=== PATIENT | male | born 1985 | race Caucasian/White ===

== ENCOUNTER 2017-06-07 10:25 | Day surgery (SDC) | payer OTHER ==
[~2017-06-07 10:25] MED LIST: LIDOCAINE W/ SODIUM BICARB 0.5 ML SYR ONE; Lactated Ringers 1,000 ML PRIMARY IV ONE
[2017-06-07] MEDS ORDERED: LIDOCAINE 2% 20 MG/ML - 20 ML VIAL ONE (10:54)
[2017-06-07] MEDS ORDERED: BUPivacaine Inj 0.5% PF (5mg/ml) 10ml vial ONE (10:54)
[2017-06-07] MEDS ORDERED: MIDAZOLAM 5 MG/1 ML ONE (11:10)
[2017-06-07] MEDS ORDERED: fentaNYL Inj 250 MCG/5 ML VIAL ONE (11:35)
[2017-06-07] MEDS ORDERED: ceFAZolin 1 GM VIAL ONE (11:48)
[2017-06-07] MEDS ORDERED: BUPivacaine Liposome/PF (Exparel) Inj 20ml vial INFIL ONE (12:07)
[2017-06-07] MEDS ORDERED: Lactated Ringers 1,000 ML PRIMARY IV ONE (12:11)
[2017-06-07 12:12] VITALS: RESP 18
[2017-06-07] MEDS ORDERED: ONDANSETRON 4 MG/2 ML VIAL IVP PRN (12:20)
[2017-06-07] MEDS ORDERED: NORMAL SALINE 10 ML SYRINGE FLUSH IVP PRN (12:20)
[2017-06-07] MEDS ORDERED: MORPHINE SULFATE 2 MG/1 ML IVP PRN (12:20)
[2017-06-07] MEDS ORDERED: HYDROcodone-APAP 7.5 MG-325 MG TABLET PO PRN (12:20)
--- NOTE | 2017-06-07 12:32 | GEN.OPNOTE ---
Operative Note Surgery Date: 06/07/17 Preoperative Diagnosis: Right inguinal hernia Postoperative Diagnosis: Right inguinal hernia Procedure: Right inguinal herniorrhaphy with Prolene mesh Surgeon: Juan Pablo Ragsdale MD Anesthesia Provider: Gen Emery CRNA Anesthesia Type: Local, MAC Estimated Blood Loss (mL): 2 Fluids: Lactated Ringer's please see anesthesia notes in EMR. 2 g Ancef Pathology: None sent Indications: A right inguinal hernia Findings: A right direct and indirect hernia Operative Summary: Patient is brought in operative room placed supine position. Given IV sedation. Prepped draped sterile fashion. Timeout performed per protocol. He is 0.5 Marcaine 2% Xylocaine 50-50 mixture for local regional block. It is skin incision after adequate anesthesia. Hemostased electrocautery. Dissection to subcutaneous tissue electrocautery. Infiltrated below the aponeurosis external oblique for pain control the spermatic cord. A small incision that after also external oblique. Then's slight identify the ilioinguinal nerve. Then opened the aponeurosis of external oblique through the external ring and then above the internal ring with Metzenbaum scissors. Dissected the spermatic cord off the floor the ilioinguinal canal and place a [place] drain around it. Patient had a direct hernia defect. I then inspected the cord and found the indirect hernia sac. Dissected this free from the spermatic cord and reduced it. Cut a piece of Prolene mesh to appropriate size and shape. Keyholed mesh to reconstruct the internal ring. Using 0 Prolene suture sutured the inferior to the mesh to the shelving edge of the ilioinguinal ligament. On the superior edge of the mesh and stress cells fascia. Medial edge of the mesh was sewn to the rectus sheath. Return the spermatic cord is anatomical position. Closed the external oblique with 2-0 Prolene contents running suture. Infiltrated 20 mg a Exoprel for postoperative pain control. Closed the skin with 4-0 Monocryl continuous running septic restitch Steri-Strips applied sterile dressings applied patient tolerated procedure well the were no complications. Counts were correct. Patient transferred recovery room stable condition
[2017-06-07] MEDS ORDERED: oxyCODONE/APAP 7.5/325 Tab 1 TAB TAB PO ONE ×2 (13:15→13:16)
[2017-06-07 14:02] VITALS: TEMP 97.6
== END 2017-06-07 13:50 | disposition home or self-care (01) ==
LOC: SDSC 10:25
PROVIDERS: ATTEND Surgery
DX: K40.90 Unilateral inguinal hernia, without obstruction or gangrene, not specified as recurrent (principal)
CPT/HCPCS: 49505; C9290; J0690; J2250; J2704; J3010; J2001; J3490; J7120